=== PATIENT | male | born 1960 | race Caucasian/White ===

== ENCOUNTER 2017-09-29 21:46 | Emergency (ER) | payer SELFPAY ==
[2017-09-30] MEDS ORDERED: CYCLOBENZAPRINE HCL 10 MG TABLET PO ONE (00:57)
[2017-09-30] MEDS ORDERED: KETOROLAC TROMETHAMINE 60 MG/2 ML SDV IM ONE (00:57)
--- NOTE | 2017-09-30 00:57 | ER Document Report ---
ED General - General Chief Complaint: Low Back Pain Stated Complaint: LOW BACK PAIN RIGHT SIDE Time Seen by Provider: 09/29/17 23:06 Notes: Patient is a 57-year-old male who presents emergency department with a chief complaint of right-sided low back pain. Patient states it is a history of this after he strains himself at work. Patient states he works at [employer] lifting heavy boxes throughout the day. Patient states that he was lifting a lot at work today and had gradual right sided low back pain start. Patient states that he then went home with the dog when he was bending over he felt really sore. Patient states he did not take anything prior to arrival. Has been able to walk denies any urinary/stool incontinence, saddle anesthesia. Admits to intermittent tingling in bilateral lower extremities but denies any weakness, difficulty walking. Patient states that heat does help his lower back. Patient states that he does have a history of this within this past year with similar symptoms. Primary care is with Dr. Stephenson at [facility] Denies any allergies Past medical history significant for diabetes, hypertension, hyperlipidemia, reflux, history of coronary artery disease with 5 stents, emphysema Past surgical history significant for bilateral hand procedures for previous osteoarthritis, coronary cath 2. Last stress test was in the past 6 months and stable. 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 TRAVEL OUTSIDE OF THE [place] IN LAST 30 DAYS: No - Related Data Allergies/Adverse Reactions: No Known Allergies Allergy (Verified 09/29/17 21:57) Past Medical History - Social History Smoking Status: Unknown if Ever Smoked Family History: Reviewed & Not Pertinent Patient has suicidal ideation: No Patient has homicidal ideation: No Renal/ Medical History: Denies: Hx Peritoneal Dialysis Review of Systems - Review of Systems Constitutional: No symptoms reported Cardiovascular: No symptoms reported Respiratory: No symptoms reported Gastrointestinal: No symptoms reported Musculoskeletal: See HPI Neurological/Psychological: See HPI -: Yes All other systems reviewed and negative Physical Exam - Vital signs Vitals: Temp Pulse Resp BP Pulse Ox 99.1 F 69 20 127/63 H 94 09/29/17 21:55 09/29/17 21:55 09/29/17 21:55 09/29/17 21:55 09/29/17 21:55 - Notes Notes: PHYSICAL EXAM GENERAL: Alert, interacts well. HEAD: Normocephalic, atraumatic. LUNGS: Clear to auscultation bilaterally, no wheezes, rales, or rhonchi. No respiratory distress. HEART: Regular rate and rhythm. No murmurs, gallops, or rubs. ABDOMEN: Soft, nondistended, nontender. No guarding, rebound, or rigidity.. Bowel sounds present in all 4 quadrants. EXTREMITIES: Moves all 4 extremities spontaneously. No edema, radial and dorsalis pedis pulses 2/4 bilaterally. No cyanosis. Back: tenderness to palpation of right paralumbar musculature with pain reproducible to palpation, no spinous process tenderness, deformities or step- offs. Patient able to ambulate to the bed. Strength equal in bilateral lower extremities. Sensation intact bilaterally. NEUROLOGICAL: Alert and oriented x4. Normal speech. PSYCH: Normal affect, normal mood. SKIN: Warm, dry, normal turgor. No rashes or lesions noted. Course - Re-evaluation Re-evalutation: 09/30/17 03:44 Patient is a 57-year-old male whose presentation is consistent with acute muscle strain. Imaging ordered today shows evidence of moderate disc disease which is consistent with patient's presentation. The patient presents with low back pain without signs of spinal cord compression, cauda equina syndrome, infection, aneurysm, or other serious etiology. The patient is neurologically intact. Given the extremely low risk of these diagnoses further testing and evaluation for these possibilities does not appear to be indicated at this time. The patient has been instructed to return if the symptoms worsen or change in any way. - Vital Signs Vital signs: Temp Pulse Resp BP Pulse Ox 99.1 F 69 20 127/63 H 94 09/29/17 21:55 09/29/17 21:55 09/29/17 21:55 09/29/17 21:55 09/29/17 21:55 - Diagnostic Test Radiology reviewed: Image reviewed, Reports reviewed Discharge - Discharge Clinical Impression: Back pain Qualifiers: Back pain location: low back pain Chronicity: acute Back pain laterality: right Sciatica presence: without sciatica Qualified Code(s): M54.5 - Low back pain Condition: Good Disposition: HOME, SELF-CARE Additional Instructions: LOW BACK PAIN: Three out of every four people will have an episode of disabling back pain during their lifetime. Most commonly the pain is due to straining of the muscles and ligaments in the low back. Usual treatment includes: (1) Rest on a firm surface. Avoid lying on your stomach. (2) Ice pack the painful area. After a few days, gentle heat may be used intermittently to relax the area, or ice packs can be continued. (3) Medication may be needed -- muscle relaxers and antiinflammatory medicines are commonly used. (4) As the back improves, exercises are prescribed to strengthen the back and abdominal muscles. Your doctor will advise you on the proper care for your back at each stage in your recovery. You may be better in a few days -- or healing may take several weeks. If new symptoms of a "herniated disc" (radiation of pain, numbness, or tingling down the back of the leg or weakness in the leg) occur, you should be re-examined. Further testing may be necessary. PAIN MEDICATION INJECTION: You have received an injection of a pain medication. You should experience significant pain relief within 45 minutes. If this injection was a narcotic -- it will impair your judgement, slow your reaction time and make you sleepy (as well as relieve your pain). Narcotics also can cause nausea. You should not drive, work with machinery, or perform any task requiring mental alertness until all effects of the medication are gone -- six to eight hours. Do not take any alcohol, or sedatives, and do not take any other medication without checking with your physician. MUSCLE RELAXERS: Muscle relaxing medications are usually prescribed for acute muscle spasm or injury to the neck and back. They are often combined with antiinflammatory pain medication for increased relief. You may stop the muscle relaxer when the pain and stiffness have improved. Start the medication again if spasms recur. Muscle relaxers may cause drowsiness, especially with the first dose. Do not operate machinery or drive while under the effects of the medication. Most muscle relaxers last up to 24 hours. Do not combine the medication with alcohol. ICE PACKS: Apply ice packs frequently against the painful area. Many different schedules are recommended, such as "20 minutes on, 20 minutes off" or "one hour ice, two hours rest." If you need to work, you may need to go longer between ice treatments. You should plan to have the area ice packed AT LEAST one fourth of the time. The ice should be applied over the wrap, tape, or splint, or over a layer of cloth -- not directly against the skin. Some ice bags have a built-in cloth and can be put directly on the skin. WARM PACKS: After approximately two days, apply gentle heat (such as a heating pad or hot water bottle) for about 20 to 30 minutes about every two hours -- at least four times daily. Warmth and elevation will help you make a more rapid recovery , and will ease the pain considerably. Do not use HOT heat, and never apply heat for longer than 30 minutes. The continuous heat can invisibly damage skin and muscles -- even when no burn is seen on the surface. Damaged muscles can make you MORE sore. FOLLOW-UP CARE: If you have been referred to a physician for follow-up care, call the physician s office for an appointment as you were instructed or within the next two days. If you experience worsening or a significant change in your symptoms, notify the physician immediately or return to the Emergency Department at any time for re-evaluation. Prescriptions: Cyclobenzaprine HCl [Flexeril 10 mg Tablet] 10 mg PO TIDP PRN #15 tab PRN Reason: Lidocaine [Lidoderm 5% (700 mg) Transdermal Patch] 1 patch TP DAILY #30 adh..patch Naproxen 250 mg PO BIDP PRN #20 tablet PRN Reason: Forms: Return to Work, Special Work Note Referrals: STACY MEZA MD [Primary Care Provider] - Follow up in 3-5 days
--- NOTE | 2017-09-30 02:01 | RADIOLOGY REPORT (SQ) ---
EXAM DESCRIPTION: L SPINE WHOLE CLINICAL HISTORY: 57 years, Male, back pain COMPARISON: None. NUMBER OF VIEWS: 5 TECHNIQUE: AP, lateral, and obliques. LIMITATIONS: None. FINDINGS: Mild levo convexity, mild disc desiccation between the L2 and S1 levels, mild lumbar spondylosis, normal lordotic curvature, normal alignment, and normal vertebral-intervertebral heights. IMPRESSION: Mild/moderate disc desiccation and spondylosis. 2011 [employer]- All Rights Reserved
[2017-09-30] MEDS ORDERED: LIDOCAINE 5% (700 MG) TRANSDERMAL ADH..PATCH TP ONE (03:48)
[2017-09-30 04:21] VITALS: BP 122/64
== END 2017-09-30 04:20 | disposition home or self-care (01) ==
LOC: ER 21:46
DX: M47.9 Spondylosis, unspecified (principal); M54.5 Low back pain; I25.10 Atherosclerotic heart disease of native coronary artery without angina pectoris; I10 Essential (primary) hypertension; E11.9 Type 2 diabetes mellitus without complications; J43.9 Emphysema, unspecified; Z95.5 Presence of coronary angioplasty implant and graft; Z87.891 Personal history of nicotine dependence
CPT/HCPCS: 99283; 96372; 72110; J1885